=== PATIENT | male | born 1965 ===

== ENCOUNTER 2017-02-12 12:43 | Day surgery (SDC) | payer OTHER ==
[2017-02-11 08:03] VITALS: BMI 37.5
[2017-02-12 13:41] LABS: BASO # 0.01 K/mm3 (0.0-2.0); BASO % 0.1 % (0.0-3.0); EOS # 0.1 (0.0-0.7); EOS % 1.9 % (1.5-5.0); GRAN % 58.5 % (50.0-68.0); HEMOGLOBIN 15.3 gm/dL (14.0-18.0); LYMPH # 2.3 (1.2-3.4); LYMPH % 33.1 % (22.0-35.0); MEAN CELL VOLUME 81.1 fL (80.0-105.0); MEAN CORPUSCULAR HEMOGLOBIN 29.2 pg (25.0-35.0); MEAN PLATELET VOLUME 10.8 fl (7.0-11.0); MONO # 0.4 (0.1-0.6); MONO % 6.4 % (1.0-6.0); PLATELET COUNT 243 10^3/uL (120.0-450.0); RBC 5.24 10^6/uL (3.5-6.1); RED CELL DISTRIBUTION WIDTH 12.7 % (11.5-14.5); WHITE BLOOD COUNT 6.9 10^3/ul (4.5-11.0)
[2017-02-12 14:02] LABS: INR 0.94 (0.93-1.08); PARTIAL THROMBOPLASTIN TIME 26.4 Seconds (23.7-30.8); PROTHROMBIN TIME 10.1 Seconds (9.9-11.8)
[2017-02-12 14:05] LABS: BLOOD UREA NITROGEN 11 mg/dL (7-21); CALCIUM 9.7 mg/dL (8.4-10.5); GFR AFRICAN-AMERICAN > 60; GFR NON-AFRICAN AMERICAN > 60; HDL CHOLESTEROL 25 mg/dL (29-60); LDL CHOLESTEROL 35 mg/dL (0-129)
[2017-02-12] MEDS ORDERED: Lidocaine 2% Inj (20ml) ONE (15:21)
[2017-02-12] MEDS ORDERED: Midazolam 2 MG/2 ML VIAL ONE ×3 (15:22→16:04)
[2017-02-12] MEDS ORDERED: Iodixanol 320 MG/ML 100 ML BOTTLE IV ONE ×2 (15:24→17:00)
[2017-02-12] MEDS ORDERED: Nitroglycerin 50mg in D5W 50 MG/250 ML BOTTLE IV ONE (15:24)
[2017-02-12] MEDS ORDERED: Iohexol 350mgl/ml 50 ML ONE (15:24)
[2017-02-12] MEDS ORDERED: Iodixanol 320 MG/ML 200 ML BOTTLE IV ONE (15:24)
[2017-02-12] MEDS ORDERED: Adenosine 90 mg/30mL IV ONE (16:39)
[2017-02-12] MEDS ORDERED: Eptifibatide 20 mg/10mL Inj IVP ONE (16:58)
[2017-02-12] MEDS ORDERED: Bacitracin 500 Units/gm Oint Foilpak UD TOP ONE (18:12)
--- NOTE | 2017-02-12 18:35 | CP.PCM.PN ---
Subjective - Date & Time of Evaluation Date of Evaluation: 02/12/17 Time of Evaluation: 18:33 - Subjective Subjective: s/p LHCx/CABG/FFR of MISHRA Objective - Vital Signs/Intake and Output Vital Signs (last 24 hours): Temp Pulse Resp BP Pulse Ox 98.1 F 86 20 128/73 94 L 02/12/17 13:00 02/12/17 13:00 02/12/17 13:00 02/12/17 13:00 02/12/17 13:00 Intake and Output: 02/12/17 02/12/17 06:59 18:59 Intake Total 10 Balance 10 - Medications Medications: Current Medications Amlodipine Besylate (Norvasc) 10 mg PO DAILY [facility] Aspirin (Ecotrin) 325 mg PO DAILY [facility] Isosorbide Mononitrate (Imdur) 30 mg PO DAILY [facility] Metformin HCl (Glucophage) 500 mg PO BID [facility] Metoprolol Succinate (Toprol Xl) 100 mg PO DAILY [facility] Non-Formulary Medication (Empagliflozin [Jardiance]) 10 mg PO DAILY [facility] - Labs Labs: 02/12/17 13:15 02/12/17 13:15 PT 10.1 Seconds (9.9-11.8) 02/12/17 13:15 INR 0.94 (0.93-1.08) 02/12/17 13:15 APTT 26.4 Seconds (23.7-30.8) 02/12/17 13:15 Assessment and Plan (1) S/P cardiac cath Assessment & Plan: MISHRA to LAD patent - [place] MISHRA tortous with moderate hazziness FFR 0.6 with vasospasm relieved with NTG Platinum Coronaries LAD - severe 99% ISR LCx - 100% RCA - small non-dominant diffuse 80-90% Bypass Anatomy MISHRA to LAD patent SVG to OM - patent L dominant system LVEF 60-65% LVEDP 22 Plan add ranexa 500mg bid cont with asa, bb, nitrates , ccb f/u with Status: Acute
[2017-02-12 19:23] VITALS: TEMP 97.9
[2017-02-12] MEDS ORDERED: Bacitracin 500 Units/gm Oint Foilpak UD ONE (20:18)
[2017-02-12 21:25] VITALS: RESP 20
[2017-02-12 21:26] VITALS: BP 129/80; PULSE 80; O2SAT 20
[2017-02-13] MEDS ORDERED: Aspirin 325 mg EC Tablets PO SCH (10:00)
[2017-02-13] MEDS ORDERED: Metoprolol Succinate 100 mg XL Tab PO SCH (10:00)
[2017-02-13] MEDS ORDERED: Non Formulary Medication (Empagliflozin [Jardiance] 10 MG) PO SCH (10:00)
== END 2017-02-12 21:48 | disposition home or self-care (01) ==
LOC: CATH 12:43 → 2RSO 18:15 → CATH 21:48
PROVIDERS: ATTEND Internal Medicine Interventional Cardiology
DX: I25.110 Atherosclerotic heart disease of native coronary artery with unstable angina pectoris (principal); I10 Essential (primary) hypertension; E11.9 Type 2 diabetes mellitus without complications; E78.5 Hyperlipidemia, unspecified; Z95.1 Presence of aortocoronary bypass graft
CPT/HCPCS: 36415; 80048; 80061; 85025; 85610; 85730; 86850; 86900; 93459; 93571; 99152; 99153; C1769 ×4; C1887 ×2; J0153; J1327; J1644 ×2; J2250; J3010; J7030; Q9967 ×2

== ENCOUNTER 2017-04-07 06:09 | Day surgery (SDC) | payer OTHER ==
[2017-04-06 08:44] VITALS: BMI 37.9
[2017-04-07] MEDS ORDERED: Iohexol 350 MG/100 ML VIAL ONE ×3 (06:44→08:59)
[2017-04-07] MEDS ORDERED: Nitroglycerin 50mg in D5W 0 MG/0 ML BOTTLE IV ONE (06:44)
[2017-04-07] MEDS ORDERED: Iohexol 350mgl/ml 50 ML ONE (06:44)
[2017-04-07] MEDS ORDERED: Lidocaine 2% Inj (20ml) ONE ×3 (06:44→09:30)
[2017-04-07 07:16] VITALS: O2SAT 97
[2017-04-07] MEDS ORDERED: Midazolam 2 MG/2 ML VIAL ONE ×2 (07:42→08:04)
[2017-04-07] MEDS ORDERED: Sodium Chloride 0.45% 1,000 ML IV SCH (09:45)
[2017-04-07 12:30] VITALS: TEMP 98
[2017-04-07 17:03] VITALS: BP 130/93; PULSE 79; RESP 15
--- NOTE | 2017-04-07 23:14 | CARD ---
APPROVED REPORT EKG Measurement Heart [id number] VA 150P57 [id number] <Conclusion> Normal sinus rhythm Possible Left atrial enlargement T wave abnormality, consider lateral ischemia Abnormal ECG
--- NOTE | 2017-04-08 06:14 | PROCN ---
DATE: 04/07/2017 INDICATIONS: The patient is a pleasant 51-year-old female with past medical history significant for hypertension, dyslipidemia, diabetes mellitus, coronary artery disease, status post CABG, who had undergone a stress test last month with significant ischemia in the inferolateral wall and anteroapical wall. He was brought to the optical laboratory manager 2 weeks ago for a diagnostic CABG showed severe disease to the osage RCA, no grafts were patent to the RCA with patent MISHRA to LAD and a patent SVG to the OM territory. He had severe osage triple vessel disease. The plan was to discharged the patient home and maximize medical therapy. He had recurrent symptoms of angina with chest pains for which he was admitted last week to [facility]. At that time, an exercise treadmill test was performed. There, he was not able to walk fast 2 minutes secondary to chest pains. Therefore, he was brought back to the optical laboratory manager for possible intervention of the osage LAD in the RCA system. PROCEDURE PERFORMED: Left heart catheterization with selective left and right coronary angiogram, selective MISHRA to LAD angiogram, selective SVG to OM angiogram, percutaneous of the osage proximal RCA, attempted wiring of CT of RCA. TECHNIQUE OF PROCEDURE: After obtaining informed consent, the patient was brought to the cardiac cath suite in post-absorptive non-sedated state. The patient was prepped and draped in the usual sterile fashion. A 2% lidocaine was used for infiltration anesthesia. Using modified Seldinger technique, a 6-Malian sheath was introduced into the right femoral artery subsequently over a J-wire, JL4 and JR4 and catheter was used to engage the left and right coronary systems and JL4 was then used to engage the MISHRA. The OM was engaged, selective angiograms were performed. [place] coronary anatomy, left main patent LAD 99% occluded with comparative flow noted from the MISHRA. Left circumflex 100% occluded, ramus high grade stenosis. SVG graft patent to the OM territory feeding the retrograde diagonal and the osage circ. MISHRA to LAD is patent. Then, diffuse osage LAD disease. RCA diffusely diseased vessel with proximal 100% ENGINEERING ADMINISTRATOR, conus patent. TECHNIQUES AND INTERVENTION: Attempt was made to open the osage ENGINEERING ADMINISTRATOR. Balloon was inflated in the conus branch for anchoring technique and a wire was tightly negotiated. The wire was unable to cross secondary to severe calcification and poor glide support. At this time, the procedure was aborted. IMPRESSION: crossing of osage right coronary artery. RECOMMENDATIONS: Aggressive medical management and risk factor modification. The patient to continue followup with Dr. Surjit Gerber. Thank you Dr. Jenkins for letting me participate in the care of your patient. Lev Beltran MD
== END 2017-04-07 18:59 | disposition home or self-care (01) ==
LOC: CATH 06:09 → 2RSO 10:07 → CATH 18:59
PROVIDERS: ATTEND Internal Medicine Interventional Cardiology
DX: I25.119 Atherosclerotic heart disease of native coronary artery with unspecified angina pectoris (principal); I11.0 Hypertensive heart disease with heart failure; I50.9 Heart failure, unspecified; F17.200 Nicotine dependence, unspecified, uncomplicated; R06.00 Dyspnea, unspecified; E11.9 Type 2 diabetes mellitus without complications; E66.9 Obesity, unspecified; E78.5 Hyperlipidemia, unspecified; Z95.1 Presence of aortocoronary bypass graft
CPT/HCPCS: 36415; 85175; 86850; 86900; 92920; 93005; 93459; 99152; 99153; C1725 ×2; C1760; C1769 ×4; C1887 ×4; C1894; C2629; J1644 ×2; J2250; J2405; J3010; J7030; J7040; Q9967 ×3

== ENCOUNTER 2018-09-14 10:09 | Day surgery (SDC) | payer OTHER ==
[2018-09-14] MEDS ORDERED: Lidocaine 2% PF (10 ml) Amp ONE (13:36)
[2018-09-14] MEDS ORDERED: Verapamil 0 ML ONE (13:36)
[2018-09-14] MEDS ORDERED: Iodixanol 320 MG/ML 200 ML BOTTLE IV ONE (13:36)
[2018-09-14] MEDS ORDERED: Nitroglycerin 50mg in D5W 0 MG/0 ML BOTTLE IV ONE (13:37)
[2018-09-14] MEDS ORDERED: Heparin 2,000 ML IV ONE (13:37)
[2018-09-14] MEDS ORDERED: Midazolam 2 MG/2 ML VIAL ONE ×3 (15:31→15:49)
[2018-09-14] MEDS ORDERED: DiphenhydrAMINE 50 mg/ml Inj ONE (15:52)
[2018-09-14] MEDS ORDERED: Eptifibatide 20 mg/10mL Inj IVP ONE (16:00)
[2018-09-14] MEDS ORDERED: Iohexol 350mgl/ml 50 ML ONE (16:07)
[2018-09-14] MEDS ORDERED: Iodixanol 320 mg/ml 150 ml Bottle IV ONE (16:16)
[2018-09-14] MEDS: Sodium Chloride 0.9% 1,000 ML IV SCH (19:00)
--- NOTE | 2018-09-14 19:10 | CP.PCM.CON ---
<Jared Santo - Last Filed: 09/14/18 18:49> History of Present Illness - History of Present Illness History of Present Illness: Jared Santo, ICU Consult Note For Dr. Ash: ICU consulted for: S/p cath, with cath also likely in AM. Pt is a 53 yo M with pmhx of HTN, HLD, DM, CAD s/p CABG who transferred [facility] ICU for cath today. Pt was transferred from [facility] where he was noted to have complaints of "crushing, burning, chest pain" that is 10/10 in intensity. EKG was done with changes noted on EKG and cardio was consulted. Pt was then transferred here from [facility] for cath, in recyclable materials sorter balloon was able to be deployed and plan is for potential revisit in AM. Cath will likely be done in AM tomorrow. At this time the pt is resting comfortably in bed. Pt at this time is denying any headaches, lightheadedness, dizziness, chest pain, palpitations, SOB, cough, abd pain, n/v, c/d, dysuria, hematuria or groin soreness. Pmhx:HTN, HLD, DM, CAD s/p CABG Pshx: PCI in 2008 All: NKDA Soc: Former smoker quit ', former etoh abuse quit ', former cocaine abuse quit Fam hx: Unknown Review of Systems - Review of Systems Review of Systems: 12 point ROS reviewed and negative except for noted in HPI above. Past Patient History - Past Medical History & Family History Past Medical History?: Yes - Past Social History Smoking Status: Former Smoker - CARDIAC Other/Comment: CAD - PULMONARY Hx Respiratory Disorders: Yes Hx Asthma: Yes (SEASONAL ALLERGIES) Hx Chronic Obstructive Pulmonary Disease (COPD): No Hx Emphysema: No Hx Sleep Apnea: Yes (AWAITING INSURANCE APPROVAL FOR CPAP) - NEUROLOGICAL Hx Neurological Disorder: No HX Cerebrovascular Accident: No Hx Seizures: No Hx Transient Ischemic Attacks (TIA): No - HEENT Hx HEENT Problems: No - RENAL Hx Chronic Kidney Disease: No - ENDOCRINE/METABOLIC Hx Diabetes Mellitus Type 1: Yes - HEMATOLOGICAL/ONCOLOGICAL Hx Blood Disorders: No Hx Blood Transfusions: No - INTEGUMENTARY Hx Dermatological Problems: No - MUSCULOSKELETAL/RHEUMATOLOGICAL Hx Musculoskeletal Disorders: No Hx Falls: No Hx Fractures: No - GASTROINTESTINAL Hx Gastrointestinal Disorders: Yes Hx Gastritis: Yes Other/Comment: Umbilical Hernia - GENITOURINARY/GYNECOLOGICAL Hx Genitourinary Disorders: No - PSYCHIATRIC Hx Psychophysiologic Disorder: No - SURGICAL HISTORY Other/Comment: CARDIAC CATHETERIZATION - ANESTHESIA Hx Anesthesia: Yes Hx Anesthesia Reactions: No Hx Malignant Hyperthermia: No Meds Allergies/Adverse Reactions: Allergies Allergy/AdvReac Type Severity Reaction Status Date / Time No Known Allergies Allergy Verified 08/23/18 08:10 - Medications Medications: Current Medications Amlodipine Besylate (Norvasc) 10 mg PO DAILY [facility] Sodium Chloride (Sodium Chloride 0.9%) 1,000 mls @ 100 mls/hr IV .Q10H [facility] Metoprolol Tartrate (Lopressor) 50 mg PO BID [facility] Sitagliptin Phosphate (Januvia) 100 mg PO BID [facility] Physical Exam - Constitutional Appears: Non-toxic, No Acute Distress - Head Exam Head Exam: ATRAUMATIC, NORMAL INSPECTION, NORMOCEPHALIC - Eye Exam Eye Exam: EOMI, Normal appearance, PERRL - Respiratory Exam Respiratory Exam: Clear to Auscultation Bilateral, NORMAL BREATHING PATTERN. absent: Accessory Muscle Use, Decreased Breath Sounds, Rales, Rhonchi, Wheezes, Respiratory Distress, Stridor - Cardiovascular Exam Cardiovascular Exam: RRR, +S1, +S2. absent: Gallop, Rubs - GI/Abdominal Exam GI & Abdominal Exam: Normal Bowel Sounds, Soft. absent: Diminished Bowel Sounds, Distended, Firm, Rigid Additional comments: Pt had dressing over R groin. Dressing is clean, dry and intact with no underlying hematoma noted. - Extremities Exam Extremities exam: Positive for: normal capillary refill, normal inspection, pedal pulses present - Back Exam Back exam: NORMAL INSPECTION. absent: CVA tenderness (L), CVA tenderness (R) - Neurological Exam Neurological exam: Alert, Oriented x3 - Psychiatric Exam Psychiatric exam: Normal Affect, Normal Mood Results - Vital Signs Recent Vital Signs: Last Vital Signs Temp 98.9 F 09/14/18 17:42 Pulse 87 09/14/18 18:40 Resp 21 09/14/18 18:40 BP 130/73 09/14/18 18:30 Pulse Ox 82 L 09/14/18 18:40 Assessment & Plan - Assessment and Plan (Free Text) Assessment: Pt is a 53 yo M with pmhx of HTN, HLD, DM, CAD s/p CABG who transferred [facility] ICU for cath today. Pt will likely be going to recyclable materials sorter at 7 am tomorrow. Plan: NSTEMI s/p cath: - No stents placed today, will go back to recyclable materials sorter tomorrow in the AM - Cont norvasc - Cont lopressor - Cont Asa, plavix - Cont januvia and will monitor BS levels. - Ranexa BID - NPO @ midnight - Will monitor overnight - Further recs per cardio. <Abdiel Ash - Last Filed: 09/15/18 12:36> Meds - Medications Medications: Current Medications Amlodipine Besylate (Norvasc) 10 mg PO DAILY [facility] Last Admin: 09/15/18 10:57 Dose: 10 mg Sodium Chloride (Sodium Chloride 0.9%) 1,000 mls @ 100 mls/hr IV .Q10H [facility] Last Admin: 09/15/18 04:48 Dose: 100 mls/hr Metoprolol Tartrate (Lopressor) 50 mg PO BID [facility] Last Admin: 09/15/18 10:57 Dose: 50 mg Sitagliptin Phosphate (Januvia) 100 mg PO BID [facility] Last Admin: 09/15/18 10:57 Dose: 100 mg Results - Vital Signs Recent Vital Signs: Last Vital Signs Temp 98.1 F 09/15/18 08:00 Pulse 88 09/15/18 10:50 Resp 12 09/15/18 10:40 BP 156/99 H 09/15/18 10:57 Pulse Ox 98 09/15/18 10:50 - Labs Result Diagrams: 09/15/18 08:50 09/15/18 08:50 Labs: Laboratory Results - last 24 hr 09/15/18 09/15/18 09/15/18 08:50 08:50 11:00 WBC 8.1 RBC 4.93 Hgb 14.0 Hct 43.7 MCV 88.6 MCH 28.4 MCHC 32.0 RDW 13.2 Plt Count 234 MPV 10.0 Neut % (Auto) 64.2 Lymph % (Auto) 28.4 [place] % (Auto) 5.9 Eos % (Auto) 1.4 L Baso % (Auto) 0.1 Lymph # (Auto) 2.3 [place] # (Auto) 0.5 Eos # (Auto) 0.1 Baso # (Auto) 0.01 Absolute Neuts (auto) 5.22 Sodium 137 Potassium 4.0 Chloride 101 Carbon Dioxide 30 Anion Gap 9 L BUN 14 Creatinine 0.6 L Est GFR ( Amer) > 60 Est GFR (Non-Af Amer) > 60 POC Glucose (mg/dL) 186 H Random Glucose 206 H Calcium 8.9 Phosphorus 3.5 Magnesium 1.8 Total Bilirubin 0.6 AST 38 ALT 27 Alkaline Phosphatase 79 Total Protein 7.0 Albumin 3.8 Globulin 3.2 Albumin/Globulin Ratio 1.2 Addendum Addendum: 09/14/18 19:36 MICU Attending Addendum Patient seen and examined and d/w with residents on 09/14 Agree with resident note above with following add/exceptions 53M with HTN DM and hx of CABG admitted with chest pain. Cath done but not completed. Will have cath again tomorrow. Other hemodynamically stable. no chest pain. NSTEMI s/p cath but no stents placed ; re-cath tomorrow Post cath mmt as per cardio norvasc lopressor Asa, plavix insulin NPO @ midnight Rest of care as above Abdiel Ash MD MICU Attending
--- NOTE | 2018-09-14 20:58 | CARDCATH ---
PROCEDURE DATE: 09/14/2018 INDICATION: Mr. Sandhu is a 53-year-old male with history of CAD, CABG, who underwent laparoscopic hernia repair. Postop, the patient became hypertensive and had ST changes, subsequently was ruled in for non-ST elevation CT. An echocardiogram done showed mild inferoseptal hypokinesis, he was therefore brought to the roofing laborer for evaluation of non-STEMI. PROCEDURE PERFORMED: Left heart catheterization with selective left and right coronary angiogram, selective MISHRA to LAD, angiogram SVG to OM angiogram. ANGIOGRAPHIC FINDINGS: Left main is a large-sized vessel, bifurcates into LAD and left circumflex coronary artery. LAD is proximally 100% occluded. Left circumflex proximally 100% occluded. RCA is a large-sized vessel proximally 100% occluded with collateral flow noted in the right system. MISHRA to LAD widely patent. LAD collaterals into the right PDA. SVG graft to obtuse marginal has a proximal 99% occlusion with questionable thrombus intervention performed. JR4 guiding catheter was used to engage the graft to the OM. [place] wire was used to cross the lesion. Intra-arterial Integrilin was given. Subsequently, lesion was predilated with 4-0 balloon. Multiple inflations were done. At this point, the x-ray equipment malfunctioned and was unable to proceed with intervention and stenting of the graft to the OM. IMPRESSION: Successful plain old balloon angioplasty of vein graft to the obtuse marginal, unable to stent secondary to x-ray malfunction. RECOMMENDATIONS: The patient is to be kept in [facility] for intervention of the SVG to OM in 12 to 24 hours. Keep the patient on dual antiplatelet therapy and guideline-directed therapy for CAD. Lev Beltran MD
[2018-09-14 23:15] VITALS: BMI 40.9
[2018-09-14] MEDS ORDERED: Influenza Vaccine 60 mcg/0.5 mL SYR (4YR UP) IM ONE (23:15)
[2018-09-14] MEDS ORDERED: Pneumococcal 23-Valent Vaccine IM ONE (23:15)
[2018-09-15] MEDS: Sodium Chloride 0.9% 1,000 ML IV SCH (04:48)
[2018-09-15] MEDS ORDERED: Lidocaine 2% PF (10 ml) Amp ONE (06:53)
[2018-09-15] MEDS ORDERED: Iodixanol 320 MG/ML 200 ML BOTTLE IV ONE (06:54)
[2018-09-15] MEDS ORDERED: Iohexol 350mgl/ml 50 ML ONE (06:54)
[2018-09-15] MEDS ORDERED: Iodixanol 320 MG/ML 100 ML BOTTLE IV ONE (06:54)
[2018-09-15] MEDS ORDERED: Nitroglycerin 50mg in D5W 0 MG/0 ML BOTTLE IV ONE (06:55)
[2018-09-15] MEDS ORDERED: Lidocaine PF 2% (5 ml) Inj (For Cardiac Arrhy) ONE (06:55)
[2018-09-15] MEDS ORDERED: Midazolam 2 MG/2 ML VIAL ONE ×2 (07:12→07:16)
[2018-09-15 09:11] LABS: ALB/GLOB RATIO 1.2 (1.1-1.8); ALBUMIN 3.8 g/dL (3.0-4.8); ALT/SGPT 27 U/L (7-56); AST/SGOT 38 U/L (17-59); BASO # 0.01 K/mm3 (0.0-2.0); BASO % 0.1 % (0.0-3.0); BLOOD UREA NITROGEN 14 mg/dL (7-21); CALCIUM 8.9 mg/dL (8.4-10.5); EOS # 0.1 (0.0-0.7); EOS % 1.4 % (1.5-5.0); GFR NON-AFRICAN AMERICAN > 60; LYMPH # 2.3 (1.2-3.4); LYMPH % 28.4 % (22.0-35.0); MEAN CELL VOLUME 88.6 fl (80.0-105.0); MEAN CORPUSCULAR HEMOGLOBIN 28.4 pg (25.0-35.0); MONO # 0.5 (0.1-0.6); MONO % 5.9 % (1.0-6.0); RBC 4.93 10^6/uL (3.5-6.1); RED CELL DISTRIBUTION WIDTH 13.2 % (11.5-14.5); WHITE BLOOD COUNT 8.1 10^3/uL (4.5-11.0)
--- NOTE | 2018-09-15 09:20 | CARD ---
APPROVED REPORT Date of service: 09/14/2018 EKG Measurement Heart [id number] [place] 156P47 [id number] <Conclusion> Normal sinus rhythm Possible Left atrial enlargement Inferior infarct, age undetermined ST & T wave abnormality, consider lateral ischemia Abnormal ECG
[2018-09-16] MEDS: Sodium Chloride 0.9% 1,000 ML IV SCH ×2 (02:30→10:13)
[2018-09-16] MEDS ORDERED: Lidocaine PF 2% (5 ml) Inj (For Cardiac Arrhy) ONE (06:59)
[2018-09-16] MEDS ORDERED: Iohexol 350mgl/ml 50 ML ONE (07:00)
[2018-09-16] MEDS ORDERED: Nitroglycerin 50mg in D5W 0 MG/0 ML BOTTLE IV ONE (07:00)
[2018-09-16] MEDS ORDERED: Iodixanol 320 MG/ML 200 ML BOTTLE IV ONE (07:00)
[2018-09-16] MEDS ORDERED: Iodixanol 320 MG/ML 100 ML BOTTLE IV ONE (07:00)
[2018-09-16] MEDS ORDERED: Heparin 2,000 ML IV ONE (07:00)
[2018-09-16] MEDS ORDERED: Midazolam 2 MG/2 ML VIAL ONE ×3 (07:33→07:42)
--- NOTE | 2018-09-16 08:24 | CARD ---
APPROVED REPORT Date of service: 09/15/2018 EKG Measurement Heart [id number] ME 154P47 [id number] <Conclusion> Normal sinus rhythm Possible Left atrial enlargement Left axis deviation Inferior infarct, age undetermined ST & T wave abnormality, consider lateral ischemia Abnormal ECG
--- NOTE | 2018-09-16 09:58 | CARDCATH ---
PROCEDURE DATE: 09/16/2018 INDICATIONS: Mr. Sandhu is 53-year-old male who underwent a diagnostic angiogram and angioplasty of a vein graft to OM, was brought back for PTCA stenting of the vein graft to OM. PROCEDURE PERFORMED: 1. Left heart catheterization with selective vein graft angiogram to OM. 2. PTCA drug-eluting stent of vein graft to OM with deployment of 4.5 x 18 mm [place] drug-eluting stent, lesion reduction from 60% down to 0% KRISTY-3 flow. A 6-[place]ib[place] left femoral access and Angio-Seal closure device for hemostasis. TECHNIQUES OF PROCEDURE: After obtaining informed consent, the patient was brought back for completion of his prior procedure which was unable to be completed due to some equipment malfunction. The patient had 6-[place] left femoral arterial access, a JR4 guiding catheter was used to engage the vein graft. Subsequently, a [place] to [place] wire was used to cross the lesion. The lesion which had been previously treated with balloon angioplasty had some residual stenosis which was again pre-dilated with the 4.0 balloon and subsequently stented with 4.5 x 18 mm [place] drug-eluting stent. Final angiograms done which showed lesion reduction down to 0% KRISTY-3 flow. IMPRESSION: Successful percutaneous transluminal coronary angioplasty stenting of vein graft to obtuse marginal with deployment of 4.5 x 18 drug eluting stent. RECOMMENDATIONS: Keep the patient on dual-antiplatelet therapy and guideline-directed therapy for CAD. The patient can be discharged home or transferred back to as per surgery protocol. Thank you Dr. Middleton, for letting me participate in the care of your patient and Dr. Wade, for letting me participate in the care of your patient. Lev Beltran MD cc: Dr. Wade and Dr. Middleton.
--- NOTE | 2018-09-16 11:33 | CP.PCM.PN ---
Subjective - Date & Time of Evaluation Date of Evaluation: 09/16/18 Time of Evaluation: 11:00 - Subjective Subjective: s/p PTCA/VIRGEN of SVG to LCx/om Objective - Vital Signs/Intake and Output Vital Signs (last 24 hours): Temp Pulse Resp BP Pulse Ox 97.7 F 77 17 128/71 93 L 09/16/18 10:15 09/16/18 10:15 09/16/18 10:15 09/16/18 10:15 09/16/18 10:00 Intake and Output: 09/16/18 09/16/18 06:59 18:59 Intake Total 1200 Output Total 1600 Balance -400 - Medications Medications: Current Medications Amlodipine Besylate (Norvasc) 10 mg PO DAILY [facility] Last Admin: 09/16/18 10:12 Dose: 10 mg Sodium Chloride (Sodium Chloride 0.9%) 1,000 mls @ 100 mls/hr IV .Q10H [facility] Last Admin: 09/16/18 10:13 Dose: 100 mls/hr Metoprolol Tartrate (Lopressor) 50 mg PO BID [facility] Last Admin: 09/16/18 10:13 Dose: 50 mg Sitagliptin Phosphate (Januvia) 100 mg PO BID [facility] Last Admin: 09/16/18 10:13 Dose: 100 mg - Labs Labs: 09/15/18 08:50 09/15/18 08:50 - Constitutional Appears: Well - Head Exam Head Exam: ATRAUMATIC, NORMAL INSPECTION, NORMOCEPHALIC - Eye Exam Eye Exam: EOMI, Normal appearance, PERRL Pupil Exam: NORMAL ACCOMODATION, PERRL - ENT Exam ENT Exam: Mucous Membranes Moist, Normal Exam - Neck Exam Neck Exam: Full ROM, Normal Inspection. absent: Lymphadenopathy - Respiratory Exam Respiratory Exam: Clear to Ausculation Bilateral, NORMAL BREATHING PATTERN - Cardiovascular Exam Cardiovascular Exam: REGULAR RHYTHM, +S1, +S2. absent: Murmur - GI/Abdominal Exam GI & Abdominal Exam: Soft, Normal Bowel Sounds. absent: Tenderness - Extremities Exam Extremities Exam: Full ROM, Normal Capillary Refill, Normal Inspection. absent: Joint Swelling, Pedal Edema - Back Exam Back Exam: NORMAL INSPECTION - Neurological Exam Neurological Exam: Alert, Awake, CN II-XII Intact, Normal Gait, Oriented x3 - Psychiatric Exam Psychiatric exam: Normal Affect, Normal Mood - Skin Skin Exam: Dry, Intact, Normal Color, Warm Assessment and Plan (1) NSTEMI (non-ST elevated myocardial infarction) Assessment & Plan: s/p PTCA/VIRGEN of SVG to OM with VIRGEN x 1 cont dapt cont home cardiac meds dc home in 6 hours once seen by Surgery resident Status: Acute (2) Post PTCA Status: Acute (3) S/P hernia surgery Status: Acute (4) CAD (coronary artery disease) of artery bypass graft Status: Acute
[2018-09-16 15:31] VITALS: TEMP 98
[2018-09-16 15:37] VITALS: BP 138/80; RESP 27; O2SAT 93
--- NOTE | 2018-09-16 15:50 | CP.PCM.PN ---
<Charmaine Valera - Last Filed: 09/17/18 16:33> Subjective - Date & Time of Evaluation Date of Evaluation: 09/16/18 Time of Evaluation: 12:45 - Subjective Subjective: General Surgery progress note for Dr. Middleton Patient seen and examined today at [facility] in ICU. Patient states he is feeling well after cath today tolerating diet and passing flatus. he states he has not yet had a BM since surgery but does not feel bloated or constipated. He otherwise denies DUMONT, CP, SOB, abdominal pain (other than mild incisional soreness), and n/v. Objective - Vital Signs/Intake and Output Vital Signs (last 24 hours): Temp Pulse Resp BP Pulse Ox 98 F 75 27 H 138/80 93 L 09/16/18 15:30 09/16/18 15:15 09/16/18 15:15 09/16/18 15:15 09/16/18 15:15 Intake and Output: 09/16/18 09/16/18 06:59 18:59 Intake Total 1200 Output Total 1600 Balance -400 - Medications Medications: Current Medications Amlodipine Besylate (Norvasc) 10 mg PO DAILY [facility] Last Admin: 09/16/18 10:12 Dose: 10 mg Sodium Chloride (Sodium Chloride 0.9%) 1,000 mls @ 100 mls/hr IV .Q10H [facility] Last Admin: 09/16/18 10:13 Dose: 100 mls/hr Insulin Human Lispro (Humalog) 22 units SC [facility] Metoprolol Tartrate (Lopressor) 50 mg PO BID [facility] Last Admin: 09/16/18 10:13 Dose: 50 mg Sitagliptin Phosphate (Januvia) 100 mg PO BID [facility] Last Admin: 09/16/18 10:13 Dose: 100 mg - Labs Labs: 09/15/18 08:50 09/15/18 08:50 - Constitutional Appears: Well, Non-toxic, No Acute Distress - Head Exam Head Exam: ATRAUMATIC - Eye Exam Eye Exam: EOMI - ENT Exam ENT Exam: Mucous Membranes Moist - Respiratory Exam Respiratory Exam: NORMAL BREATHING PATTERN - Cardiovascular Exam Cardiovascular Exam: REGULAR RHYTHM - GI/Abdominal Exam GI & Abdominal Exam: Soft. absent: Guarding, Tenderness, Hernia Additional comments: incisions CDI, dressings changed - Neurological Exam Neurological Exam: Alert, Awake, Oriented x3 - Psychiatric Exam Psychiatric exam: Normal Affect, Normal Mood - Skin Skin Exam: Dry, Intact, Normal Color, Warm Assessment and Plan - Assessment and Plan (Free Text) Assessment: 53 M POD 4 from robotic umbilical hernia repair, POD 0 s/p Cardiac catheterization with Dr. Beltran Plan: Continue to encourage ambulation continue home medications and any new medications per cardiology recs pt given prescription for colace 100 mg BID PRN for constipation instructed on no heavy lifting for 6-8weeks instructed to follow up in office with Dr. Middleton patient is clear for D/c from surgical standpoint discussed with roxi Sifuentes recs per him Charmaine Valera, PGY 1 <Musa Middleton - Last Filed: 09/18/18 21:57> Objective - Vital Signs/Intake and Output Vital Signs (last 24 hours): Temp Pulse Resp BP Pulse Ox 98 F 74 27 H 138/80 93 L 09/16/18 15:30 09/16/18 18:09 09/16/18 15:15 09/16/18 18:09 09/16/18 15:15 - Labs Labs: 09/15/18 08:50 09/15/18 08:50 Attending/Attestation - Attestation I have fully participated in the care of the patient.: Yes I have reviewed all pertinent clinical information, including history, physical exam and plan: Yes Notes (Text): Pt is s/p cardiac cath, improving clinically Wound is C/D/I Pt can be DC home F/u as out pt Local wound care Plan d.w pt in detail
--- NOTE | 2018-09-16 16:14 | CARD ---
APPROVED REPORT Date of service: 09/16/2018 EKG Measurement Heart [id number] [place] [id number] <Conclusion> Normal sinus rhythm Possible Left atrial enlargement Left axis deviation Inferior infarct, age undetermined ST & T wave abnormality, consider lateral ischemia Abnormal ECG
[2018-09-16] MEDS ORDERED: Insulin Lispro 1 UNITS/0.01 ML SC SCH (16:30)
[2018-09-16 18:11] VITALS: PULSE 74
== END 2018-09-16 20:02 | disposition home or self-care (01) ==
LOC: CATH 10:09 → CCU 17:03 → CATH 09-16 20:02
PROVIDERS: ATTEND Internal Medicine Interventional Cardiology
DX: I21.4 Non-ST elevation (NSTEMI) myocardial infarction (principal); I25.10 Atherosclerotic heart disease of native coronary artery without angina pectoris; E11.9 Type 2 diabetes mellitus without complications; E78.5 Hyperlipidemia, unspecified; I10 Essential (primary) hypertension; K29.70 Gastritis, unspecified, without bleeding; K42.9 Umbilical hernia without obstruction or gangrene; Z79.899 Other long term (current) drug therapy; Z87.891 Personal history of nicotine dependence; Z95.1 Presence of aortocoronary bypass graft
CPT/HCPCS: 80053; 82948 ×2; 83735; 84100; 85025; 85175 ×2; 92920; 93005 ×3; 93459; 99152 ×2; 99153; C1725 ×2; C1760 ×2; C1769 ×3; C1874; C1887 ×2; C1894 ×2; C9600; J1200; J1327; J1644 ×6; J2250 ×3; J3010 ×3; J7030 ×3; Q9966 ×2; Q9967 ×4